=== PATIENT | female | born 1975 | race Caucasian/White ===

== ENCOUNTER 2021-05-25 13:43 | Emergency (ER) | payer OTHER ==
[~2021-05-25] VITALS: Ht 162.6 cm; Wt 54.4 kg
--- NOTE | 2021-05-25 13:43 | NUR ---
BIBS C/O LIP LACERATION, NOSE PAIN & RIGHT KNEE ABRASION S/P FALL. PT VITALS ARE WITHIN NORMAL LIMITS. BREATHING IS REGULAR AND UNLABORED. PT IS AT BEDSIDE.
--- NOTE | 2021-05-25 14:17 | NUR ---
DR NAYLOR AT BEDSIDE
[2021-05-25] MEDS ORDERED: TDAP [DIPH/PERTUSSIS/TET] 0.5 ML VIAL IM ONE ×2 (14:30)
--- NOTE | 2021-05-25 15:03 | NUR ---
Patient discharged to home in stable condition. Written and verbal after care instructions given. Patient verbalizes understanding of instruction.
[2021-05-25 15:23] VITALS: BP 123/69
== END 2021-05-25 15:23 | disposition home or self-care (01) ==
LOC: ER 13:52
DX: S01.511A Laceration without foreign body of lip, initial encounter (principal); J34.89 Other specified disorders of nose and nasal sinuses; W01.198A Fall on same level from slipping, tripping and stumbling with subsequent striking against other object, initial encounter; Y93.89 Activity, other specified; Y92.89 Other specified places as the place of occurrence of the external cause; Y99.8 Other external cause status
CPT/HCPCS: 90715